=== PATIENT | female | born 1955 | race Two or more races ===

== ENCOUNTER 2016-06-29 00:03 | Emergency (ER) | payer OTHER ==
[~2016-06-29] VITALS: Ht 162.6 cm; Wt 70.8 kg
--- NOTE | 2016-06-29 00:13 | PHYS DOC ---
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 Some tingling at the tip of her finger but no weakness or color change. Review of Systems Review of Systems Constitutional: Denies fever or chills [] Musculoskeletal: + L hand joint pain [] Integument: Denies rash or skin lesions [] Allergies Allergies Allergies Coded Allergies Type Severity Reaction Last Updated Verified No Known Drug Allergies 06/29/16 No Physical Exam Physical Exam Constitutional: Well developed, well nourished, no acute distress, non-toxic appearance. [] Skin: Warm, dry, no erythema, no rash. [] Extremities: Left index and middle finger with pain to palpation on the flexor surface however no obvious swelling or deformity. Neurologic: Alert and oriented X 3, normal motor function, subjective numbness on pad on L index finger, no focal deficits noted. [] Current Patient Data Vital Signs Vital Signs Date Time Temp Pulse Resp B/P Pulse Ox O2 Delivery O2 Flow Rate FiO2 06/29/16 00:14 97.9 70 18 94 Room Air 97.9 EKG EKG [] Radiology/Procedures Radiology/Procedures Left hand x-ray shows no obvious fracture dislocation or soft tissue changes. Course & Med Decision Making Course & Med Decision Making Will treat as finger sprain as an outpatient. Dragon Disclaimer Dragon Disclaimer This electronic medical record was generated, in whole or in part, using a voice recognition dictation system. Departure Departure Impression: Primary Impression: Finger sprain Disposition: 01 HOME, SELF-CARE Condition: GOOD Referrals: NO PCP (PCP) Patient Instructions: Finger Sprain Additional Instructions: Take 400mg of ibuprofen every 6 hours. Stay in the splint until your finger doesn't hurt. If still having pain after 1 week follow with your doctor. Thank you! Problem Qualifiers Primary Impression: Finger sprain Encounter type: initial encounter Finger: index finger Sprain of finger site: interphalangeal joint Laterality: left Qualified Code: S63.631A - Sprain of interphalangeal joint of left index finger, initial encounter MAX EUCEDA DO June 29, 2016 00:13
[2016-06-29 00:14] VITALS: BP 150/76
--- NOTE | 2016-06-29 07:44 | RAD ---
Indication hyperextension injury. Pain. AP oblique and lateral views of the left hand were obtained. No bony abnormality is seen
== END 2016-06-29 00:59 | disposition home or self-care (01) ==
LOC: ER 00:03
DX: S63.611A Unspecified sprain of left index finger, initial encounter (principal); X50.9XXA Other and unspecified overexertion or strenuous movements or postures, initial encounter; Y93.89 Activity, other specified; Y92.89 Other specified places as the place of occurrence of the external cause; Y99.8 Other external cause status
CPT/HCPCS: 29130; 73130; 99284